=== PATIENT | female | born 1975 | race Asian ===

== ENCOUNTER 2020-10-06 06:18 | Day surgery (SDC) | payer OTHER ==
--- NOTE | 2020-10-05 17:41 | HISTORY & PHYSICAL EXAMINATION ---
HPI - History of Present Illness HPI Comment/Other: HPI: Jordan is here today for PreOp. She is scheduled for hysteroscopy d&c for , 10/06. However, she is considering an ablation and would like to discuss. ...................................................................Vi Richards RN October 04, 2020 4:32 PM The patient is a 45-year-old here for preop evaluation for hysteroscopy. Patient reports that she wants a Novasaure ablation at the time of hysteroscopy. She is aware we will have to collect an EMB today. The patient reports that she has had dysfunctional uterine bleeding since her mid 40s. Her menses last about 2 to 3 weeks in duration. She is "always asking f or medroxyprogesterone." She had an ultrasound in 2018 or 2019, that was suggestive of adenomyosis. It showed a posterior 2.3 cm fibroid and a 6 mm endometrial stripe and a 13 cm uterus. She has actually had 2 ultrasounds 1 was completed on 08/19/2019, which showed a 6 mm endometrial stripe and heterogeneous myometrium suggestive of adenomyosis. She is a . CSx2 and x2. Has had a tubal ligation. No STIs. No abnormal pap smears. Las pap was in [address] [facility]. SA limited due to constant bleeding. No change in health hx since time of prior exam. Allergies: CIPRO (Severe) HYDROCODONE (Severe) MORPHINE (Severe) Medications: norethindrone (contraceptive) 0.35 mg tablet (norethindrone (contraceptive)) Take 1 tablet by mouth once a day medroxyprogesterone 10 mg tablet (medroxyprogesterone) Take 1 tablet by mouth once a day May take two tablets. Problems: Preoperative examination (ICD-V72.84) (OPZ29-Y91.818) Screening for cervical cancer (ICD-V76.2) (BFL32-I29.4) Mammographic screening for breast cancer (ICD-V76.12) (KMF27-E84.31) Adenomyosis (ICD-617.0) (EOB71-W70.0) Excessive and frequent menstruation (ICD-626.2) (KFR23-K40.0) Past Medical History: Chronic UTI Past Surgical History: CSx2 Abdominal hernia repair x2 [employer] Review of Systems ROS Comments: As per HPI, otherwise remaining systems are negative. Physical Constitutional: GEN: NAD HEAD: NCAT EYES: No scleral icterus or conjunctival injection CV: RRR RESP: CTAB, normal effort ABD: S&NT/ND PSYCH: appropriate affect NEURO: alert and oriented, normal gait and coordination EXT: WWP Vulva: NEFG. Nl BSUMA Mild amount of blood in vaginal vault. Parous cervix without lesions for discharge. Mildly enlarged uterus with no tenderness. No adnexal masses or tenderness. Sounds to 9 cm. Impression & Recommendations: Problem # 1: Preoperative examination (ICD-V72.84) (TNM99-T88.818) Patient is scheduled for hysteroscopy and now desires Novasure ablation We discussed that ablation can mask symptoms of endometrial cancer and can obscur staging in the setting of endometrial cancer We reviewed that the endometrial biopsy results may not return prior to the ablation procedure If she has hyperplasia or malignancy, then she will need a hysterectomy post ablation. Patient voiced understanding. She has already undergone sterilization Reviewed risks/benefits/alternatives to hysteroscopy/polpectomy/Novasure ablation Risks include, but are not limited to, bleeding, infection, damage to neatby tissue and organs. On average, expected EBL is minimal. In the event of an unanticipated blood loss, patient is willing to undergo transfusion. Risks of blood transfusion include infection as well as transfusion reaction Risk of HIV 1/2million nationwide Risk of Hepatitis 1/1 million Risks of transfusion reaction and mgt reviewed Infection risk low given that no incisions izabella be made and we will be using physiologic orifices. Will provide IV abx in the event of uterine perforation. Damage to nearby tissue and organs was reviewed with emphasis on uterine perforation and management, which can include surgical intervention based on bleeding risk. Reviewed management of complications and efforts to avoid such outcomes but reviewed that they may occur despite our best efforts. Patient agreed to the aforementioned procedure and written informed consent was obtained. Problem # 2: Screening for cervical cancer (ICD-V76.2) (LPM43-L78.4) Pap smear was collected If normal, will need repeat in 5 years Other Orders: ENDOMETRIAL BIOPSY (CPT-50886) PRE OP -36326 (CPT-94836) EMB PATHOLOGY LVL IV (CPT-99705) THIN PREP PAP with HPV 30+YRS OLD (CPT-23677) Endometrial Biopsy Indications: menometrorrhagia Method: 1.2 mm pipelle biopsy curette Uterine Soundin cm Amt of tissue obtained: average Informed Consent Informed consent was obtained. Procedure Reviewed risks/benefits/alternatives at length, patient had no questions, informed consent obtained. Bimanual examination was done to determine the position of the uterus. Vaginal speculum was inserted, and the cervix was visualized. Pap was collected. The cervix was cleansed x3 with antiseptic solution. Topical lidocaine applied. Tenaculum applied to anterior cervical lip. Uterus sounded to Xcm.EMB pipelle was inserted through the cervical canal, into the uterine cavity, and up to the fundus, then withdrawn as it was rotated 3-4 times to obtain the sample. Sample collected in 3 passes, packaged in formalin, and sent to pathology. Tenaculum removed, sites hemostatic.Followup: The patient tolerated the procedure well without complications. Standard post- procedure care is explained and return precautions are given. Hemostasis Hemostasis was obtained. The patient tolerated the procedure well. Complications: none PMH/PSH - Past Medical History Cardiovascular: positive: None Respiratory: positive: None Endocrine/Autoimmune: positive: None GI: positive: None : positive: Chronic bladder infection HEENT: positive: None Psych: positive: Claustrophobia Musculoskeletal: positive: None Derm: positive: None MRSA Hx?: No - Past Surgical History General: positive: Other /WE[employer]: positive: section Meds/Allgy - Home Medications Home Medications: Ambulatory Orders Medication Instructions Recorded Confirmed Nitrofurantoin Macrocrystal 50 mg PO DAILY 10/05/20 10/05/20 [Macrodantin] - Allergies Allergies/Adverse Reactions: Allergies Allergy/AdvReac Type Severity Reaction Status Date / Time ciprofloxacin [From Cipro] AdvReac Nausea Verified 10/05/20 09:20 hydrocodone AdvReac Nausea Verified 10/05/20 09:20
[2020-10-06] MEDS ORDERED: CELECOXIB 100 MG CAPSULE PO ONE (06:27)
[2020-10-06] MEDS ORDERED: ACETAMINOPHEN 500 MG TABLET PO ONE (06:27)
[2020-10-06] MEDS ORDERED: GABAPENTIN 400 MG CAPSULE ONE (06:28)
[2020-10-06] MEDS ORDERED: LACTATED RINGERS 1,000 ML IV ONE ×2 (06:37→08:36)
[2020-10-06 07:06] LABS: HCG UR QUAL NEGATIVE
[2020-10-06] MEDS ORDERED: SILVER NITRATE APPLICATOR TOP ONE (07:11)
[2020-10-06] MEDS ORDERED: BUPIVACAINE 0.5%-EPI 1:200000 PF 30 ML VIAL ONE (07:11)
[2020-10-06] MEDS ORDERED: LIDOCAINE-MPF 2% 5 ML VIAL ONE (07:12)
[2020-10-06] MEDS ORDERED: MIDAZOLAM 2 MG/2 ML VIAL ONE (07:12)
[2020-10-06] MEDS ORDERED: fentaNYL 100 MCG/2 ML VIAL ONE (07:12)
[2020-10-06] MEDS ORDERED: PROPOFOL 200 MG/20 ML VIAL IVP ONE (07:12)
--- NOTE | 2020-10-06 07:25 | ANESTHESIA ---
Pre-Anesthesia VS, & Labs - Diagnosis heavy menstruation - Procedure hysteroscopy, myosure Vital Signs: Temp Pulse Resp BP Pulse Ox 36.4 C L 88 16 131/83 H 97 10/06/20 06:39 10/06/20 06:39 10/06/20 06:39 10/06/20 06:39 10/06/20 06:39 Height: 5 ft 2 in Weight (kg): 75 kg Body Mass Index: 30.2 BMI Classification: Obese - NPO >8 hours - Is Patient ?: No - Lab Results Current Lab Results: Laboratory Tests 10/06/20 07:01: POC Whole Bld Glucose 108 H Home Medications and Allergies Home Medications: Ambulatory Orders Nitrofurantoin Macrocrystal [Macrodantin] 50 mg PO DAILY 10/05/20 Nitrofurantoin Macrocrystal [Macrodantin] 50 mg PO DAILY 10/05/20 Allergies/Adverse Reactions: Allergies Allergy/AdvReac Type Severity Reaction Status Date / Time ciprofloxacin [From Cipro] AdvReac Nausea Verified 10/05/20 09:20 hydrocodone AdvReac Nausea Verified 10/05/20 09:20 Anes History & Medical History - Anesthetic History Anesthesia Complications: reports: Post-Operative Nausea/Vomiting - Medical History Cardiovascular: reports: None Pulmonary: reports: None Gastrointestinal: reports: None Urinary: reports: Chronic bladder infection Musculoskeletal: reports: None Endocrine/Autoimmune: reports: None Skin: reports: None History of Cancer?: No - Surgical History General: reports: Other Gynecologic: reports: section Exam General: Alert Dental: WNL Mouth Opening: Greater than 4 Fingerbreadths Neck Mobility: Normal Mallampati classification: I Respiratory: Lungs clear Cardiovascular: Regular rate Plan Anesthesia Type: General Consent for Procedure(s) Verified and Reviewed: Yes Code Status: Attempt Resuscitation ASA classification: 2-Mild systemic disease Is this case an emergency?: No
[2020-10-06] MEDS ORDERED: ONDANSETRON 4 MG/2 ML VIAL IVP PRN (07:26)
[2020-10-06] MEDS ORDERED: ATROPINE ABBOJECT 1 MG/10 ML SYRINGE IVP PRN (07:26)
[2020-10-06] MEDS ORDERED: NALOXONE 0.4 MG/ML VIAL IVP PRN (07:26)
[2020-10-06] MEDS ORDERED: ePHEDrine 50 MG/ML VIAL IVP PRN (07:26)
[2020-10-06] MEDS ORDERED: fentaNYL 100 MCG/2 ML VIAL IVP PRN (07:26)
[2020-10-06] MEDS ORDERED: METOCLOPRAMIDE 10 MG/2 ML VIAL IVP PRN (07:26)
[2020-10-06] MEDS ORDERED: SCOPOLAMINE PATCH TOP ONE (07:33)
[2020-10-06] MEDS ORDERED: LACTATED RINGERS 1,000 ML IV SCH (08:00)
[2020-10-06] MEDS ORDERED: BUPIVACAINE 0.5%-EPI 1:200000 PF 30 ML VIAL SUBQ ONE ×2 (08:05)
--- NOTE | 2020-10-06 09:01 | OPERATIVE REPORT ---
Operative Report - General Procedure Date: 10/06/20 Planned Procedure: Hysteroscopy D&C with Novasure ablation Pre-Op Diagnosis: Dysfunctional uterine bleeding Procedure Performed: Hysteroscopy D&C with Novasure ablation Post Op Diagnosis: Same - Procedure Note Primary Surgeon: Loan Felipe MD Anesthesia Provider: Jeri Clark CRNA Anesthesia Technique: General ET tube Pathology: uterine contents IV Fluids (mL): 800 Estimated Blood Loss (mL): 5 Urine Output (mL): 50 Indications: The patient is a 45-year-old here for hysteroscopy and Novasure ablation. Patient reported yesterday that she wants a Novasure ablation at the time of hysteroscopy. Consents were updated to reflect risks attributable to Novasure ablation. The patient reports that she has had dysfunctional uterine bleeding since her mid 40s. Her menses last about 2 to 3 weeks in duration. She is "always asking for medroxyprogesterone." She had an ultrasound in 2019 or 2019, that was suggestive of adenomyosis. It showed a posterior 2.3 cm fibroid and a 6 mm endometrial stripe and a 13 cm uterus. She has actually had 2 ultrasounds 1 was completed on 08/19/2019, which showed a 6 mm endometrial stripe and heterogeneous myometrium suggestive of adenomyosis. She is a . CSx2 and x2. Has had a tubal ligation. No STIs. No abnormal pap smears. Las pap was in [address] [facility]. SA limited due to constant bleeding. No change in health hx since time of prior exam. Findings: Normal appearing uterine cavity with no structural abnormalities. Bilateral tubal ostia seen. Complications: None - Other Other Information/Narrative: Risks benefits and alternatives to the procedure were reviewed. Consent was aga in confirmed. Patient was taken to the operating room where she underwent general anesthesia. She was positioned in dorsolithotomy position with legs resting in yellowfin stirrups. She was prepped and draped in the usual sterile fashion. Preoperative antibiotics were not indicated. Preoperative checklist was performed. Exam under anesthesia was performed. Speculum was placed in the vagina and the cervix was visualized. Single-tooth tenaculum was placed at the anterior cervical lip. Paracervical block was administered using a total of 20 cc of 0.5% bupivicaine with epinephrine was injected at the 4:00 and 8:00 positions lateral to the portio of the cervix. The cervical os was serially dilated with Hegar dilators to accommodate the caliber of the diagnostic hysteroscope. Uteru s sounded to 9.5 cm. The hysteroscope was inserted and findings were noted as above. Hysteroscope was removed. Sharp curettage D&C was performed with sharp curettage. The hysteroscope was reinserted. Uterine cavity was smooth post-procedure. The Novasure endometrial ablation instrument was inserted into the uterus. The uterus had sounded to 9.5 cm, the cervical length was 4 cm. The uterine cavity was 5.5 cm in length and 4.5 cm in width. The assessment of integrity of the uterine cavity was passed. The Novasure fired at 136 hadley for 58 seconds. All instruments were removed from the uterus. Tenaculum was removed. Tenaculum sites were noted to be hemostatic. All instruments were removed from the vagina. Procedure was well-tolerated without complication. Fluid deficit: 65 cc NS
--- NOTE | 2020-10-06 09:51 | ANESTHESIA POST OP EVALUATION ---
Anesthesia Post Eval - Post Anesthesia Eval Vitals: Last Vital Signs Temp 36.4 C L 10/06/20 09:45 Pulse 81 10/06/20 09:45 Resp 14 10/06/20 09:45 BP 136/86 H 10/06/20 09:45 Pulse Ox 97 10/06/20 09:45 CV Function Including HR & BP: Stable Pain Control: Satisfactory Nausea & Vomiting: Negative Mental Status: Baseline Respiratory Status: Airway Patent Hydration Status: Satisfactory Anesthesia Complications: None
[2020-10-06] MEDS ORDERED: PROMETHAZINE INJ 25 MG in SODIUM CHLORIDE 0.9% 50 ML IV ONE (10:06)
[2020-10-06] MEDS ORDERED: PROMETHAZINE 25 MG/1 ML VIAL ONE (10:11)
[2020-10-06 11:02] VITALS: BP 140/86
== END 2020-10-06 06:19 | disposition home or self-care (01) ==
LOC: SDS 06:18
PROVIDERS: ATTEND Obstetrics & Gynecology
PROC: 0UDB7ZX Extraction of Endometrium, Via Natural or Artificial Opening, Diagnostic (ICD-10-PCS; 2020-10-06)
PROC: 0U5B8ZZ Destruction of Endometrium, Via Natural or Artificial Opening Endoscopic (ICD-10-PCS; principal; 2020-10-06 07:30)
DX: N92.0 Excessive and frequent menstruation with regular cycle (principal); N93.8 Other specified abnormal uterine and vaginal bleeding; E66.9 Obesity, unspecified; Z68.30 Body mass index [BMI] 30.0-30.9, adult
CPT/HCPCS: 58563; 81025; A9270; J3490; J7120